=== PATIENT | male | born 1985 | race American Indian/Alaskan Native ===

== ENCOUNTER 2018-12-15 09:05 | Emergency (ER) | payer SELFPAY ==
[2018-12-15 09:31] VITALS: BP 159/99
[2018-12-15 10:00] LABS: Mucus,Urine FEW /HPF
[2018-12-15 10:02] LABS: Bilirubin,Urine NEG (Negative); Blood,Urine MOD (Negative); Color,Urine Yellow (Yellow); Urobilinogen,Urine < 2.0 mg/dL (<2.0)
[2018-12-15 10:04] LABS: WBC,Urine > 182.0 /HPF (0.0-6.0)
[2018-12-15] MEDS ORDERED: XYLOCAINE 1% MPF 5 mL INFILTRATI ONE (10:25)
[2018-12-15] MEDS ORDERED: ROCEPHIN IM ONE (10:25)
[2018-12-15] MEDS ORDERED: ZITHROMAX PO ONE (10:25)
--- NOTE | 2018-12-15 10:43 | Emergency Department Report ---
HPI - General Chief Complaint: Urogenital-Male Time Seen by Provider: 12/15/18 10:16 - HPI HPI: 33-year-old male presents to the emergency department with a complaint of some yellowish mucous penile discharge and some burning with urination since yesterday morning. Patient says that he had a history of Trichomonas one time in the past. He is sexually active with one partner but does not always use protection. He denies any fever, abdominal pain, back pain. He has not taken anything for her symptoms prior to arrival. No primary care physician. ED Past Medical Hx - Past Medical History Previous Medical History?: No Hx Asthma: No - Surgical History Past Surgical History?: No Hx Appendectomy: No - Social History Smoking Status: Heavy Tobacco Smoker Substance Use Type: Alcohol - Medications Home Medications: Home Medications Medication Instructions Recorded Confirmed Last Taken Type Sulfamethoxazole/Trimethoprim 1 each PO BID #14 tablet 12/15/18 Unknown Rx [Bactrim DS TAB] ED Review of Systems ROS: Stated complaint: DISCHARGE/PAIN USING THE RESTROOM Other details as noted in HPI Comment: All other systems reviewed and negative Constitutional: denies: chills, fever Gastrointestinal: abdominal pain. denies: vomiting Genitourinary: dysuria, discharge Musculoskeletal: denies: back pain Skin: denies: rash, lesions Physical Exam - Physical Exam Vital Signs: Vital Signs 12/15/18 09:28 Temperature 98.5 F Pulse Rate 99 H Respiratory 87 H Rate Blood Pressure 159/99 O2 Sat by Pulse 99 Oximetry Physical Exam: GENERAL: The patient is well-developed well-nourished. HENT: Normocephalic. Atraumatic. Patient has moist mucous membranes. EYES: Extraocular motions are intact. NECK: Supple. Trachea is midline. CHEST/LUNGS: Clear to auscultation. There is no respiratory distress noted. HEART/CARDIOVASCULAR: Regular. There is no tachycardia. There is no murmur. ABDOMEN: There is no abdominal distention. SKIN: Skin is warm and dry. NEURO: The patient is awake, alert, and oriented. The patient is cooperative. The patient has normal speech. MUSCULOSKELETAL: There is no tenderness or deformity. There is no evidence of acute injury. : There is a very small amount of whitish yellow discharge seen at the tip of the urethra. No other genital lesions seen. ED Course Vital Signs 12/15/18 09:28 Temperature 98.5 F Pulse Rate 99 H Respiratory 87 H Rate Blood Pressure 159/99 O2 Sat by Pulse 99 Oximetry ED Medical Decision Making - Medical Decision Making Patient presents with some dysuria and penile discharge. Urinalysis shows a significant urinary tract infection. This may be secondary to a urethritis but with 180 white blood cells as well as a be treated as a urinary tract infection. He was given Rocephin and azithromycin empirically for gonorrhea and chlamydia. He will be placed on Bactrim. He will avoid any sexual contact for at least 1 week after finishing these antibiotics. He will return to the emergency Department with any worsening of his symptoms or any acute distress. - Differential Diagnosis UTI, gonorrhea, chlamydia Critical Care Time: No Critical care attestation.: If time is entered above; I have spent that time in minutes in the direct care of this critically ill patient, excluding procedure time. ED Disposition Clinical Impression: Urethritis UTI (urinary tract infection) Qualifiers: Urinary tract infection type: acute cystitis Hematuria presence: without hematuria Qualified Code(s): N30.00 - Acute cystitis without hematuria Disposition: DC-01 TO HOME OR SELFCARE Is pt being admited?: No Condition: Stable Instructions: Nonspecific Urethritis in Men (ED), Urinary Tract Infection in Men (ED) Additional Instructions: Please take the antibiotics as prescribed. Please avoid any sexual contact for at least one week. Return to the emergency Department with any worsening of your symptoms or any acute distress. Prescriptions: Sulfamethoxazole/Trimethoprim [Bactrim DS TAB] 1 each PO BID #14 tablet Referrals: NURIS WYATT MD [Staff Physician] - 2-3 Days [facility] [Outside] - 2-3 Days Forms: STI Treatment and Prevention Time of Disposition: 10:48
== END 2018-12-15 11:31 | disposition home or self-care (01) ==
LOC: ED 09:05
DX: N39.0 Urinary tract infection, site not specified (principal); N34.2 Other urethritis; F17.200 Nicotine dependence, unspecified, uncomplicated
CPT/HCPCS: 81001; 96372; 99283; J0696